=== PATIENT | female | born 1930 | race Caucasian/White ===

== ENCOUNTER 2018-01-23 08:57 | Emergency (ER) | payer MEDICARE, BC ==
[2018-01-23 09:08] VITALS: BP 117/45
[2018-01-23] MEDS ORDERED: fentaNYL 100 MCG/2 ML SDV IM ONE (09:41)
--- NOTE | 2018-01-23 10:08 | EDM.PDOC ---
ED HPI GENERAL MEDICAL PROBLEM - General Chief Complaint: Lower Extremity Injury/Pain Stated Complaint: right hip pain s/p fall Time Seen by Provider: 01/23/18 09:20 Source of Information: Reports: Patient, Family History Limitations: Reports: Altered Mental Status - History of Present Illness INITIAL COMMENTS - FREE TEXT/NARRATIVE: Patient presents with complaints of right hip pain after a fall. Patient was found on the floor at around 0330 this am at the [facility]. Was assisted back in to bed. Was complaining of left hip pain at that time per family. Now complains of pain in the right hip and left ribs. She has a history of Alzheimer's Dementia so does repeat herself often but holds the right hip when complaining of pain. She had a pelvic fracture back in October. Family relates that is was very difficult for her to be nonweight bearing as she didn't understand the restrictions. Was unable to tolerate the lift but started walking soon after the pain was improved, approximately 2-3 days after the break. Did do a follow up xray on her in November and it was healing. No reported injuries to her head. Did not lose consciousness. Onset: Today Duration: Hour(s): Location: Reports: Lower Extremity, Right Severity: Moderate Improves with: Reports: Rest Worsens with: Reports: Movement Context: Reports: Trauma Associated Symptoms: Reports: Confusion (chronic in nature) - Related Data Allergies Allergy/AdvReac Type Severity Reaction Status Date / Time No Known Allergies Allergy Verified 01/23/18 09:11 Home Meds: Home Meds Acetaminophen [Tylenol Extra Strength] 1 - 2 tab PO Q4H PRN 01/29/14 [History] Acetaminophen [Tylenol Extra Strength] 500 mg PO BID 01/29/14 [History] Cyanocobalamin (Vitamin B12) [Vitamin B12] 1,000 mcg IJ Q30D 01/29/14 [History] Furosemide 40 mg PO DAILY 01/29/14 [History] Diltiazem [Cardizem CD] 240 mg PO DAILY #30 cap.cd 06/11/15 [Rx] Carbamide Peroxide [Debrox] 4 drop OT ASDIRECTED PRN 01/23/18 [History] Citalopram [Citalopram HBr] 20 mg PO DAILY 01/23/18 [History] Hydrocodone/Acetaminophen [Hydrocodon-Acetaminophen 5-325] 1 each PO DAILY PRN 01/23/18 [History] Memantine HCl 10 mg PO DAILY 01/23/18 [History] Sennosides/Docusate Sodium [Senna-Docusate Sodium] 1 each PO DAILY 01/23/18 [ History] Past Medical History Cardiovascular History: Reports: Hypertension Musculoskeletal History: Reports: Fracture Psychiatric History: Reports: Alzheimers Disease Social & Family History - Tobacco Use Smoking Status *Q: Never Smoker Second Hand Smoke Exposure: No - Recreational Drug Use Recreational Drug Use: No - Living Situation & Occupation Living situation: Reports: Review of Systems - Review of Systems Review Of Systems: See Below Constitutional: Denies: Fever, Weakness Eyes: Reports: No Symptoms Ears: Reports: No Symptoms Nose: Reports: No Symptoms Mouth/Throat: Reports: No Symptoms Respiratory: Denies: Shortness of Breath, Cough Cardiovascular: Denies: Chest Pain, Palpitations GI/Abdominal: Denies: Nausea Genitourinary: Reports: No Symptoms Musculoskeletal: Reports: Leg Pain, Joint Pain, Other (rib pain) Skin: Reports: No Symptoms Neurological: Reports: Confusion ED EXAM, GENERAL - Physical Exam Exam: See Below Exam Limited By: No Limitations General Appearance: Alert, WD/WN, Mild Distress Ears: Normal External Exam, Normal TMs Nose: Normal Inspection, Normal Mucosa, No Blood Throat/Mouth: Normal Inspection, Normal Oropharynx Head: Normocephalic Neck: Normal Inspection, Supple, Non-Tender Respiratory/Chest: No Respiratory Distress, Lungs Clear, Normal Breath Sounds Cardiovascular: Regular Rate, Rhythm GI/Abdominal: Normal Bowel Sounds, Soft, Non-Tender Extremities: Normal Inspection, Normal Capillary Refill Neurological: Alert, Oriented Skin Exam: Warm, Dry Course - Vital Signs Last Recorded V/S: Last Vital Signs Temp 97.3 F 01/23/18 09:05 Pulse 54 L 01/23/18 09:05 Resp 20 01/23/18 09:05 BP 117/45 L 01/23/18 09:05 Pulse Ox 97 01/23/18 09:05 - Orders/Labs/Meds Orders: Active Orders 24 hr Category Date Time Status Chest 1V Frontal [CR] Stat Exams 01/23/18 09:11 Taken Femur Min 1V Rt [CR] Stat Exams 01/23/18 09:11 Taken Pelvis 1V or 2V [CR] Stat Exams 01/23/18 09:11 Taken Meds: Medications Discontinued Medications Generic Name Dose Route Start Last Admin Trade Name Keith PRN Reason Stop Dose Admin Fentanyl 25 mcg 01/23/18 09:41 01/23/18 09:47 Sublimaze IM 01/23/18 09:42 25 mcg ONETIME ONE Administration - Re-Assessments/Exams Free Text/Narrative Re-Assessment/Exam: 01/23/18 0950 Xray questionable for a pelvic fracture. Previous site does appear healed but acetabulum possibly fractured as appears unchanged from xray in October. 1025 Radiologist called with report. Appears to have a subacute to acute acetabular fracture. Stable Departure - Departure Time of Disposition: 10:31 Disposition: Home, Self-Care 01 Clinical Impression: Acetabular fracture Qualifiers: Encounter type: initial encounter Sublocation of acetabulum: anterior wall Fracture type: closed Fracture alignment: nondisplaced Laterality: right Qualified Code(s): S32.414A - Nondisplaced fracture of anterior wall of right acetabulum, initial encounter for closed fracture - Discharge Information Referrals: Alberto Gentile MD [Primary Care Provider] - Forms: ED Department Discharge Additional Instructions: 1. No weight bearing on the right leg for 6 weeks 2. [place] 5/325 one tab every 6 hours scheduled for pain x1 week 3. Call with any questions - My Orders Last 24 Hours: My Active Orders 01/23/18 09:11 Chest 1V Frontal [CR] Stat Femur Min 1V Rt [CR] Stat Pelvis 1V or 2V [CR] Stat - Assessment/Plan Last 24 Hours: My Active Orders 01/23/18 09:11 Chest 1V Frontal [CR] Stat Femur Min 1V Rt [CR] Stat Pelvis 1V or 2V [CR] Stat
== END 2018-01-23 11:30 | disposition home or self-care (01) ==
LOC: CC.ED 08:57
DX: S32.414A Nondisplaced fracture of anterior wall of right acetabulum, initial encounter for closed fracture (principal); I10 Essential (primary) hypertension; G30.9 Alzheimer's disease, unspecified; F02.80 Dementia in other diseases classified elsewhere, unspecified severity, without behavioral disturbance, psychotic disturbance, mood disturbance, and anxiety; W06.XXXA Fall from bed, initial encounter; Z79.899 Other long term (current) drug therapy
CPT/HCPCS: 71045; 72170; 96372; 99283; J3010